=== PATIENT | female | born 1975 | race Two or more races ===

== ENCOUNTER 2020-01-11 18:53 | Inpatient (IN) | payer MEDICAID, OTHER ==
[~2020-01-11] VITALS: Ht 152.4 cm; Wt 72.9 kg
[2020-01-11 21:21] LABS: Urine Bacteria NONE SEEN /hpf (None Seen); Urine Blood 1+ /uL (Negative); Urine Mucus FEW (None Seen); Urine Specific Gravity 1.035 (1.001-1.035); Urine WBC 4 /hpf (0 - 5)
[2020-01-11 21:42] LABS: BUN/Creatinine Ratio 12.1; Magnesium 2.3 mg/dL (1.6-2.6); Potassium 3.6 mmol/L (3.5-5.1)
[2020-01-11 21:45] LABS: Basophils # (auto) 0 uL; Eosinophils # (auto) 0.1 uL; Hemoglobin 11.5 g/dL (12.2-16.2); Lymphocytes # (auto) 0.8 uL; Neutrophils # (auto) 5.7 uL; Nucleated Red Blood Cells % 0.1 %; White Blood Cell 6.9 10^3/uL (4.4-10.8)
[2020-01-11 21:47] LABS: Basophils % (auto) 0.7 % (0.0-2.0); Hematocrit 35.9 % (36.0-46.0); Lymphocytes % (auto) 11.7 % (10.0-50.0); Mean Corpuscular Hgb Conc. 32.1 g/dL (32.0-36.0); Mean Corpuscular Volume 80.8 fL (80.0-100.0); Monocytes # (auto) 0.4 uL; Monocytes % (auto) 5.1 % (0.0-12.0); Neutrophils % (auto) 81.5 % (37.0-80.0); Platelet Count (auto) 313 10^3/uL (140-450); Red Blood Cells 4.44 10^6/uL (4.0-5.20)
[2020-01-11 21:52] LABS: Bilirubin, Total 0.6 mg/dL (0.2-1.0); Total Protein 7.1 g/dL (6.4-8.2)
[2020-01-11 22:11] LABS: INR 1.01 (0.9-1.15); Partial Thromboplastin Time 27.8 sec (23.64-32.05)
[2020-01-12] MEDS ORDERED: ALUM & MAG HYDROX-SIMETH LIQ(MAALOX) 30 ML PO ONE
[2020-01-12] MEDS ORDERED: DONNATAL 5ml ORAL Elix (BELLADONNA ALK-PHENOBARB) PO ONE
[2020-01-12] MEDS ORDERED: LIDOCAINE VISCOUS 2% 15ML UD PO ONE
[2020-01-12] MEDS ORDERED: ONDANSETRON HCL 4 MG/2 ML VIAL IV ONE (02:00)
[2020-01-12] MEDS ORDERED: MORPHINE SULFATE 4 MG/ML SYR/VIAL IV ONE (02:00)
[2020-01-12] MEDS ORDERED: SODIUM CHLORIDE 0.9% 1,000 ML IV ONE (02:00)
[2020-01-12] MEDS ORDERED: SODIUM CHLORIDE 0.9% 1,000 ML IV SCH (02:12)
[2020-01-12] MEDS ORDERED: ACETAMINOPHEN 325 MG TAB PO PRN (02:15)
[2020-01-12] MEDS ORDERED: HYDROcodone-ACET 5/325MG TAB PO PRN (02:15)
[2020-01-12] MEDS ORDERED: SODIUM CHLORIDE 0.9% 2,000 ML IV ONE (02:45)
[2020-01-12] MEDS: MORPHINE SULFATE 4 MG/ML SYR/VIAL IV PRN (05:28)
[2020-01-12] MEDS: ONDANSETRON HCL 4 MG/2 ML VIAL IV PRN ×2 (05:28→16:25)
[2020-01-12 07:02] LABS: Basophils # (auto) 0 uL; Basophils % (auto) 0.3 % (0.0-2.0); Eosinophils # (auto) 0 uL; Eosinophils % (auto) 0.6 % (0.0-7.0); Hemoglobin 10.2 g/dL (12.2-16.2); Lymphocytes # (auto) 0.5 uL; Mean Corpuscular Volume 81.2 fL (80.0-100.0); Monocytes # (auto) 0.4 uL; Neutrophils # (auto) 6.2 uL
[2020-01-12 07:05] LABS: Hematocrit 31.6 % (36.0-46.0); Lymphocytes % (auto) 6.4 % (10.0-50.0); Mean Corpuscular Hemoglobin 26.1 pg (28.0-32.0); Mean Corpuscular Hgb Conc. 32.2 g/dL (32.0-36.0); Monocytes % (auto) 5.4 % (0.0-12.0); Neutrophils % (auto) 87.3 % (37.0-80.0); Nucleated Red Blood Cells % 0.1 %; Platelet Count (auto) 262 10^3/uL (140-450); Red Blood Cells 3.89 10^6/uL (4.0-5.20); Red Cell Distribution Width 17.6 % (11.8-14.3); White Blood Cell 7.1 10^3/uL (4.4-10.8)
[2020-01-12 07:19] LABS: Calcium 6.9 mg/dL (8.5-10.1); Potassium 3.9 mmol/L (3.5-5.1)
[2020-01-12 07:26] LABS: BUN/Creatinine Ratio 13.6
[2020-01-12 08:17] VITALS: BP 104/60
[2020-01-12] MEDS ORDERED: INFLUENZA QUAD 2019-2020 0.5ml SYRG IM ONE (08:45)
[2020-01-12 09:00] VITALS: BP 104/60
--- NOTE | 2020-01-12 09:03 | NUR ---
RECEIVED PT TO ROOM 249B FROM ER AT APPROX. 0815. A/O X 4. TEMP 100.0, P-120, R-22, PULSE OX 96% ROOM AIR. NGT TO RIGHT NARE CLAMPED. PT NPO. WILL CONTINUE TO MONITOR.
[2020-01-12] MEDS ORDERED: ACETAMINOPHEN 650 MG RECT SUPP PR PRN (11:15)
[2020-01-12] MEDS: D5W/ SOD CHL 0.9%/KCL 20MEQ 1,000 ML IV SCH ×2 (11:15→21:28)
[2020-01-12] MEDS ORDERED: cefTRIAXone 1GM/50ML D5W 50 ML IV ONE ×2 (11:15→11:50)
[2020-01-12 13:00] VITALS: BP 87/46
[2020-01-12] MEDS: metroNIDAZOLE 500MG/100ML 100 ML IV SCH ×2 (13:18→21:07)
--- NOTE | 2020-01-12 15:52 | NUR ---
NG TUBE HOOKED UP TO LOW INTERMITTANT SUCTION. PT VERBALIZED UNDERSTANDING OF NPO STATUS. BP 81/43. PT ASYMPTOMATIC. MONITORING CLOSELY.
[2020-01-12 17:00] VITALS: BP 90/50
--- NOTE | 2020-01-12 18:43 | NUR ---
PT STATED HER THROAT IS SORE FROM NG TUBE. PROVIDED MOUTH SWABS FOR ORAL CARE. PT ALSO STATED " HARD TO BREATHE WITH THIS IN MY THROAT. " PULSE OX 98-99% ROOM AIR. 02 APPLIED AT 2 LITERS VIA N/C. PT VERBALIZED SHE IS FEELING A BIT BETTER NOW. MONITORING CLOSELY.
--- NOTE | 2020-01-12 20:00 | NUR ---
Opening Shift Note Assumed care of patient, awake and alert. No S/S of distress/SOB or pain. Instructed on POC and to call for assist PRN, will continue to monitor for changes Q1hr and PRN.With NGT connected to low intermittent suction draining brownish gastric output.
[2020-01-12 22:00] VITALS: BP 90/48
--- NOTE | 2020-01-13 | NUR ---
Called/paged Brandin Perry called re:patients blood pressure is low,at 2350 B.P is 87/54,85/50,pulse is 74, and 0005 B.P is 90/57, pulse is 70. . Waiting for call back. Continue care.
--- NOTE | 2020-01-13 00:35 | NUR ---
returned call Yvette Perry returned call, updated on patient status and reason for call, orders received of morphine 1mg.i.v.p. x one Continue care.
[2020-01-13] MEDS ORDERED: MORPHINE SULF INJ 2 MG/ML SYRINGE 1ML IV ONE (00:45)
[2020-01-13 05:00] VITALS: BP 90/57
[2020-01-13] MEDS: metroNIDAZOLE 500MG/100ML 100 ML IV SCH ×3 (05:18→21:38)
--- NOTE | 2020-01-13 06:09 | NUR ---
Gastric drainage output is 300 cc brownish.
[2020-01-13 07:00] LABS: Basophils # (auto) 0 uL; Eosinophils # (auto) 0.1 uL; Lymphocytes # (auto) 0.9 uL; Monocytes # (auto) 0.5 uL; Red Blood Cells 3.52 10^6/uL (4.0-5.20)
[2020-01-13 07:02] LABS: Basophils % (auto) 0.7 % (0.0-2.0); Eosinophils % (auto) 2.5 % (0.0-7.0); Hematocrit 28.7 % (36.0-46.0); Hemoglobin 9.2 g/dL (12.2-16.2); Lymphocytes % (auto) 17.6 % (10.0-50.0); Mean Corpuscular Hemoglobin 26.2 pg (28.0-32.0); Mean Corpuscular Hgb Conc. 32.2 g/dL (32.0-36.0); Mean Corpuscular Volume 81.6 fL (80.0-100.0); Monocytes % (auto) 9.6 % (0.0-12.0); Neutrophils # (auto) 3.6 uL; Neutrophils % (auto) 69.6 % (37.0-80.0); Platelet Count (auto) 247 10^3/uL (140-450); Red Cell Distribution Width 18.3 % (11.8-14.3); White Blood Cell 5.2 10^3/uL (4.4-10.8)
[2020-01-13 07:16] LABS: Albumin 2.2 g/dL (3.4-5.0); Calcium 7.4 mg/dL (8.5-10.1); Potassium 3.7 mmol/L (3.5-5.1)
--- NOTE | 2020-01-13 07:19 | NUR ---
Report given to Lida Grullon, awaiting for the surgical consult.
[2020-01-13 07:21] LABS: BUN/Creatinine Ratio 11.1; Bilirubin, Total 0.4 mg/dL (0.2-1.0); Total Protein 5.7 g/dL (6.4-8.2)
[2020-01-13 09:00] VITALS: BP 101/67
[2020-01-13] MEDS: cefTRIAXone 1GM/50ML D5W 50 ML IV SCH (09:00)
[2020-01-13] MEDS: D5W/ SOD CHL 0.9%/KCL 20MEQ 1,000 ML IV SCH ×2 (10:00→16:23)
[2020-01-13 13:00] VITALS: BP 96/57
--- NOTE | 2020-01-13 13:18 | NUR ---
Nutrition Assessment Notes Please refer to link for full assessment notes. Est energy needs: 2992-0211 kcals (17-20 kcal/kgBW) Est protein needs: 39-49 gms/day (0.8-1.0 gm/kgAdjBW) Will continue to monitor and reassess prn. Addendum: 01/13/20 at [address] Amended: Links added. Addendum: 01/13/20 at [address] Additional Recommendation: If albumin continues trending down with improved RFTs, consider Prostat 1 pkt BID
[2020-01-13] MEDS ORDERED: GASTROGRAFIN 120 ML SOL ONE (14:00)
[2020-01-13 17:00] VITALS: BP_SYST 90; BP_SYST 92; BP_DIAS 58
--- NOTE | 2020-01-13 19:00 | NUR ---
Opening Shift Note Assumed care of patient, awake and alert. No S/S of distress/SOB or pain. Instructed on POC and to call for assist PRN, will continue to monitor for changes Q1hr and PRN.
[2020-01-13 22:00] VITALS: BP 105/65
[2020-01-13] MEDS: MORPHINE SULFATE 4 MG/ML SYR/VIAL IV PRN (22:23)
[2020-01-13] MEDS: ONDANSETRON HCL 4 MG/2 ML VIAL IV PRN (22:23)
[2020-01-14] MEDS: D5W/ SOD CHL 0.9%/KCL 20MEQ 1,000 ML IV SCH ×2 (03:40→09:45)
--- NOTE | 2020-01-14 05:03 | NUR ---
Gastric drainage: Gastric drainage of 450mL brownish in color.
[2020-01-14 05:30] VITALS: BP 119/65
[2020-01-14] MEDS: metroNIDAZOLE 500MG/100ML 100 ML IV SCH ×2 (05:30→14:00)
[2020-01-14 06:53] LABS: Basophils # (auto) 0 uL; Basophils % (auto) 0.8 % (0.0-2.0); Eosinophils # (auto) 0.1 uL; Hemoglobin 9.3 g/dL (12.2-16.2); Monocytes # (auto) 0.4 uL; Monocytes % (auto) 10.1 % (0.0-12.0); Neutrophils # (auto) 2.6 uL; Platelet Count (auto) 280 10^3/uL (140-450)
[2020-01-14 06:56] LABS: Eosinophils % (auto) 2.5 % (0.0-7.0); Hematocrit 28.6 % (36.0-46.0); Lymphocytes # (auto) 0.8 uL; Lymphocytes % (auto) 19.8 % (10.0-50.0); Mean Corpuscular Hgb Conc. 32.6 g/dL (32.0-36.0); Mean Corpuscular Volume 79.7 fL (80.0-100.0); Neutrophils % (auto) 66.8 % (37.0-80.0); Red Blood Cells 3.59 10^6/uL (4.0-5.20); Red Cell Distribution Width 17.4 % (11.8-14.3); White Blood Cell 3.9 10^3/uL (4.4-10.8)
[2020-01-14 07:14] LABS: BUN/Creatinine Ratio 8.2; Potassium 3.7 mmol/L (3.5-5.1)
[2020-01-14] MEDS: cefTRIAXone 1GM/50ML D5W 50 ML IV SCH (08:31)
--- NOTE | 2020-01-14 08:42 | NUR ---
NGT DISCONTINUED PER ORDER. PT TOLERATED WITHOUT DIFFICULTY.
[2020-01-14 09:00] VITALS: BP 106/56
[2020-01-14 11:30] VITALS: BP 106/56
[2020-01-14 13:00] VITALS: BP 90/52
--- NOTE | 2020-01-14 16:09 | NUR ---
DISCHARGED INSTRUCTIONS GIVEN TO PT. ALL APPROPRIATE PAPERWORK SIGNED, IV REMOVED. PT DISCHARGED HOME WITH FAMILY.
== END 2020-01-14 16:00 | disposition home or self-care (01) | DRG 247 ==
LOC: ER 18:53 → OVERFLOW 18:54 → EAST 01-12 08:11
PROVIDERS: ADMIT Hospitalist; ATTEND Internal Medicine
DX: K56.609 Unspecified intestinal obstruction, unspecified as to partial versus complete obstruction (principal); E44.0 Moderate protein-calorie malnutrition; J98.11 Atelectasis; D63.8 Anemia in other chronic diseases classified elsewhere; I10 Essential (primary) hypertension; M19.90 Unspecified osteoarthritis, unspecified site; K59.00 Constipation, unspecified; Z68.31 Body mass index [BMI] 31.0-31.9, adult
CPT/HCPCS: 36415; 71045; 74176; 74250; 76705; 80048; 80053; 80061; 81001; 81025; 82150; 83690; 83735; 84443; 85025; 85610; 85730; 87040; 87086; G0378; J0696; J2405; J3490